=== PATIENT | female | born 1960 | race Hispanic/Latino ===

== ENCOUNTER 2025-05-15 11:58 | Inpatient (IN) | payer SELFPAY ==
[2025-05-15 12:50] LABS: #Basophils 0.03 10x3/uL (0.0-0.2); #Eosinophils Less than 0.03 10x3/uL (0.0-0.7); #Monocytes 0.69 10x3/uL (0.11-0.59); #Neutrophils 8.84 10x3/uL (1.40-6.50); %Basophils 0.3 % (0.0-1.0); %Eosinophils 0.2 % (0.0-10.0); %Lymphocytes 8.7 % (21.0-51.0); %Monocytes 6.5 % (0.0-10.0); %Neutrophils 83.9 % (42.0-75.0); Hematocrit 46.8 % (36.0-47.0); Hemoglobin 14.6 g/dL (12.0-16.0); Mean Corpuscular Hemoglobin 27.0 pg (27.0-31.0); Mean Corpuscular Volume 86.7 fL (78.0-98.0); Platelet Count 237 10x3/uL (130-400); Red Blood Cell (RBC) Count 5.40 mill/uL (4.20-5.40); White Blood Cell (WBC) Count 10.54 10x3/uL (4.8-10.8)
[2025-05-15] MEDS ORDERED: Nitroglycerin 0.4 MG TAB 1 EACH ONE ×3 (12:52→13:34)
[2025-05-15] MEDS ORDERED: Aspirin Chewable 81 MG TAB ONE (12:52)
[2025-05-15 13:10] LABS: ALT (SGPT) 14 U/L (Less than 34); AST (SGOT) 22 U/L (11-34); Albumin 3.5 g/dL (3.1-4.5); Alkaline Phosphatase 175 U/L (40-110); Anion Gap 16 mmol/L (10-20); BUN (Urea Nitrogen) 12 mg/dL (9.8-20.1); Bilirubin, Total 3.7 mg/dL (0.3-1.2); Calc. Creatinine Clearance 0 mL/min (70-130); Calcium 8.9 mg/dL (7.8-10.44); Carbon Dioxide 21 mmol/L (23-31); Chloride 105 mmol/L (98-107); Globulin 4.0 g/dL (2.4-3.5); Glucose 146 mg/dL (80-115); Magnesium 1.9 mg/dL (1.6-2.6); Potassium 3.6 mmol/L (3.5-5.1); Sodium 138 mmol/L (136-145)
[2025-05-15] MEDS ORDERED: Furosemide 100 MG (10 mL) VIAL ONE (13:31)
[2025-05-15] MEDS ORDERED: Nitroglycerin 50 MG/250 ML BOT 250 ML ONE (13:35)
[2025-05-15] MEDS ORDERED: Senokot S 8.6-50 MG TAB PO PRN (14:49)
[2025-05-15] MEDS: Famotidine 20 MG TAB PO SCH (20:23)
[2025-05-15] MEDS: Carvedilol 6.25 MG TAB PO SCH (20:25)
[2025-05-15] MEDS: Melatonin 3 MG TAB PO PRN (23:21)
[2025-05-16 03:46] LABS: #Basophils Less than 0.03 10x3/uL (0.0-0.2); #Eosinophils 0.03 10x3/uL (0.0-0.7); #Monocytes 0.83 10x3/uL (0.11-0.59); #Neutrophils 8.79 10x3/uL (1.40-6.50); %Basophils 0.2 % (0.0-1.0); %Eosinophils 0.3 % (0.0-10.0); %Lymphocytes 7.6 % (21.0-51.0); %Monocytes 7.9 % (0.0-10.0); %Neutrophils 83.7 % (42.0-75.0); Hematocrit 40.6 % (36.0-47.0); Hemoglobin 12.8 g/dL (12.0-16.0); Mean Corpuscular Hemoglobin 27.1 pg (27.0-31.0); Mean Corpuscular Volume 85.8 fL (78.0-98.0); Platelet Count 204 10x3/uL (130-400); Red Blood Cell (RBC) Count 4.73 mill/uL (4.20-5.40); White Blood Cell (WBC) Count 10.50 10x3/uL (4.8-10.8)
[2025-05-16 04:01] LABS: ALT (SGPT) 12 U/L (Less than 34); AST (SGOT) 18 U/L (11-34); Albumin 2.9 g/dL (3.1-4.5); Alkaline Phosphatase 138 U/L (40-110); Anion Gap 11 mmol/L (10-20); BUN (Urea Nitrogen) 10 mg/dL (9.8-20.1); Bilirubin, Total 3.4 mg/dL (0.3-1.2); Calc. Creatinine Clearance 223 mL/min (70-130); Calcium 8.0 mg/dL (7.8-10.44); Carbon Dioxide 29 mmol/L (23-31); Cardiac Risk 3.8 (Less than 4.5); Chloride 102 mmol/L (98-107); Cholesterol 98 mg/dl (< 200 Desired); Globulin 3.2 g/dL (2.4-3.5); Glucose 126 mg/dL (80-115); HDL Cholesterol 26 mg/dL (>60 Neg Risk); LDL Cholesterol, Calculated 58 mg/dL; Potassium 3.2 mmol/L (3.5-5.1); Sodium 139 mmol/L (136-145); Triglycerides 68 mg/dL (Less than 150)
[2025-05-16] MEDS: Furosemide 40 MG (4 mL) VIAL SLOW IVP SCH (05:47)
[2025-05-16] MEDS: Acetaminophen 325 MG TAB PO PRN (05:47)
[2025-05-16] MEDS: Nitroglycerin 50 MG/250 ML BOT 250 ML IVPB SCH (07:21)
[2025-05-16] MEDS ORDERED: Losartan 25 MG TAB PO SCH (09:00)
[2025-05-16] MEDS: Aspirin 81 mg Enteric Coated Tablet PO SCH (10:31)
[2025-05-16] MEDS: Losartan 25 MG TAB PO SCH (10:31)
[2025-05-16] MEDS: Carvedilol 6.25 MG TAB PO SCH ×2 (10:31→18:13)
[2025-05-16] MEDS: Enoxaparin 40 MG (0.4 mL) SYRINGE SC SCH (10:32)
[2025-05-16] MEDS: Magnesium 2 GM/50 ML(in water) 2 GM in Premix 1 BAG IVPB SCH (10:32)
[2025-05-16] MEDS: Spironolactone 25 MG TAB PO SCH (10:32)
[2025-05-16] MEDS: PNEUMOC 20-VAL CONJ-DIP CRM/PF 0.5 ML SYRINGE IM ONE (10:48)
[2025-05-17 03:56] LABS: #Basophils Less than 0.03 10x3/uL (0.0-0.2); #Eosinophils 0.10 10x3/uL (0.0-0.7); #Monocytes 0.87 10x3/uL (0.11-0.59); #Neutrophils 7.12 10x3/uL (1.40-6.50); %Basophils 0.2 % (0.0-1.0); %Eosinophils 1.1 % (0.0-10.0); %Lymphocytes 12.1 % (21.0-51.0); %Monocytes 9.4 % (0.0-10.0); %Neutrophils 76.9 % (42.0-75.0); Hematocrit 43.2 % (36.0-47.0); Hemoglobin 13.7 g/dL (12.0-16.0); Mean Corpuscular Hemoglobin 27.1 pg (27.0-31.0); Mean Corpuscular Volume 85.5 fL (78.0-98.0); Platelet Count 218 10x3/uL (130-400); Red Blood Cell (RBC) Count 5.05 mill/uL (4.20-5.40); White Blood Cell (WBC) Count 9.26 10x3/uL (4.8-10.8)
[2025-05-17 04:12] LABS: Anion Gap 13 mmol/L (10-20); BUN (Urea Nitrogen) 14 mg/dL (9.8-20.1); Calc. Creatinine Clearance 188 mL/min (70-130); Calcium 8.4 mg/dL (7.8-10.44); Carbon Dioxide 28 mmol/L (23-31); Chloride 102 mmol/L (98-107); Glucose 107 mg/dL (80-115); Potassium 3.8 mmol/L (3.5-5.1); Sodium 139 mmol/L (136-145)
[2025-05-17 05:05] VITALS: BMI 50.3
[2025-05-17] MEDS: Dapagliflozin Propanediol 10 MG TAB PO SCH (12:13)
[2025-05-18 05:14] LABS: #Basophils Less than 0.03 10x3/uL (0.0-0.2); #Eosinophils 0.13 10x3/uL (0.0-0.7); #Monocytes 0.90 10x3/uL (0.11-0.59); #Neutrophils 6.03 10x3/uL (1.40-6.50); %Basophils 0.2 % (0.0-1.0); %Eosinophils 1.6 % (0.0-10.0); %Lymphocytes 13.8 % (21.0-51.0); %Monocytes 10.9 % (0.0-10.0); %Neutrophils 73.1 % (42.0-75.0); Hematocrit 45.8 % (36.0-47.0); Hemoglobin 14.0 g/dL (12.0-16.0); Mean Corpuscular Hemoglobin 26.5 pg (27.0-31.0); Mean Corpuscular Volume 86.7 fL (78.0-98.0); Platelet Count 236 10x3/uL (130-400); Red Blood Cell (RBC) Count 5.28 mill/uL (4.20-5.40); White Blood Cell (WBC) Count 8.25 10x3/uL (4.8-10.8)
[2025-05-18 05:32] LABS: Anion Gap 15 mmol/L (10-20); BUN (Urea Nitrogen) 15 mg/dL (9.8-20.1); Calc. Creatinine Clearance 185 mL/min (70-130); Calcium 8.8 mg/dL (7.8-10.44); Carbon Dioxide 26 mmol/L (23-31); Chloride 103 mmol/L (98-107); Glucose 112 mg/dL (80-115); Potassium 3.8 mmol/L (3.5-5.1); Sodium 140 mmol/L (136-145)
[2025-05-18 08:45] VITALS: TEMP 97.6
[2025-05-18 13:14] VITALS: BP 148/80
== END 2025-05-18 13:40 | disposition home or self-care (01) | DRG 280 ==
LOC: ERS 11:58 → IMCU/EMU 15:25 → ERHOLD 15:25 → IMCU/EMU 16:39 → 2NO 05-17 14:17
PROVIDERS: ADMIT Internal Medicine; ATTEND Internal Medicine
DX: I16.0 Hypertensive urgency (principal); I50.23 Acute on chronic systolic (congestive) heart failure; I21.A1 Myocardial infarction type 2; J96.01 Acute respiratory failure with hypoxia; I16.1 Hypertensive emergency; I10 Essential (primary) hypertension; R73.9 Hyperglycemia, unspecified; F10.90 Alcohol use, unspecified, uncomplicated; I48.0 Paroxysmal atrial fibrillation; Z90.49 Acquired absence of other specified parts of digestive tract; Z91.148 Patient's other noncompliance with medication regimen for other reason; Z79.899 Other long term (current) drug therapy
CPT/HCPCS: 36415; 71045; 80048; 80053; 80061; 83036; 83735; 83880; 84443; 84484; 85025; 93005; 93306; 93798; 96374; 96375; J1650; J1940; J3475